=== PATIENT | female | born 1970 | race Caucasian/White ===

== ENCOUNTER 2023-06-26 16:17 | Emergency (ER) | payer MEDICAID ==
[2023-06-26 18:24] LABS: BASE EXCESS VENOUS 3.1 mm/L; BICARBONATE,VENOUS 27.4 mmol/L; CARBOXYHEMOGLOBIN 7.3 % (0.0-1.6); O2 SATURATION VENOUS 76.4; OXYHEMOGLOBIN 70.1 %; PCO2 VENOUS 42.3 mm/Hg; PH,VENOUS 7.427 (7.350-7.450); PO2 VENOUS 39.9 mm/Hg; TOTAL HEMOGLOBIN 16.2 g/dL (12.0-16.0)
[2023-06-26 18:27] LABS: BASOPHILS PERCENT AUTO 0.2 % (0.1-1.3); HEMATOCRIT 44.7 % (34.3-46.0); HEMOGLOBIN 15.5 g/dL (11.2-15.5); IMMATURE GRAN ABSOLUTE AUTO 0.04 K/uL (0.00-0.23); IMMATURE GRAN PERCENT AUTO 0.4 % (0.0-0.7); LYMPHOCYTES ABSOLUTE AUTO 0.87 K/uL (0.8-3.3); LYMPHOCYTES PERCENT AUTO 8.9 % (11.4-47.7); MEAN CORPUSCULAR HEMOGLOBIN 31.5 pg (31.6-35.5); MEAN CORPUSCULAR HGB CONC 34.7 g/dL (31.6-35.5); MEAN CORPUSCULAR VOLUME 90.9 fL (81.4-99.0); MONOCYTES ABSOLUTE AUTO 0.48 K/uL (0.20-0.90); MONOCYTES PERCENT AUTO 4.9 % (3.3-12.6); NEUTROPHILS PERCENT AUTO 85.6 % (40.0-78.1); PLATELET COUNT,PLT 235 K/uL (130-375); RED BLOOD CELL COUNT 4.92 M/uL (3.77-5.24); WHITE BLOOD CELL COUNT,WBC 9.8 K/uL (3.2-11.0)
[2023-06-26 18:28] LABS: BASOPHILS ABSOLUTE AUTO 0.02 K/uL (0.00-0.10)
[2023-06-26 18:54] LABS: A/G RATIO 1.2 (1.2-2.2); ALANINE AMINOTRANSFERASE,ALT 24 U/L (12-78); ALBUMIN 3.9 g/dL (3.4-5.0); ALKALINE PHOSPHATASE 156 U/L (46-116); ANION GAP 14.6 mmol/L (5.0-14.0); ASPARTATE AMNIOTRANSFERASE,AST 7 U/L (15-37); BILIRUBIN TOTAL 0.3 mg/dL (0.2-1.0); BLOOD UREA NITROGEN,BUN 17 mg/dL (7-18); CARBON DIOXIDE,CO2 28 mmol/L (21-32); CHLORIDE,CL 96 mmol/L (100-108); CREATININE 1.1 mg/dL (0.6-1.0); EST CRCL DRUG DOSING (CG) 54.45 mL/min; ESTIMATED GFR 61 mL/min (>60); POTASSIUM,K 4.6 mmol/L (3.6-5.2); PROTEIN TOTAL,TP 7.2 g/dL (6.4-8.2); SODIUM,NA 134 mmol/L (140-148)
[2023-06-26 18:55] LABS: C-REACTIVE PROTEIN < 0.50 mg/dL (<0.50); GLUCOSE RANDOM 477 mg/dL (74-106)
== END 2023-06-26 19:14 | disposition home or self-care (01) ==
LOC: JP.ED 16:17
DX: E11.65 Type 2 diabetes mellitus with hyperglycemia (principal); J44.9 Chronic obstructive pulmonary disease, unspecified; F17.210 Nicotine dependence, cigarettes, uncomplicated; Z79.84 Long term (current) use of oral hypoglycemic drugs; Z79.899 Other long term (current) drug therapy; Z88.0 Allergy status to penicillin; Z79.82 Long term (current) use of aspirin
CPT/HCPCS: 36415; 80053; 82009; 82803; 85025; 86140; 99283

== ENCOUNTER 2024-08-01 08:54 | Emergency (ER) | payer MEDICAID ==
[2024-08-01 12:57] LABS: BASOPHILS ABSOLUTE AUTO 0.03 K/uL (0.00-0.10); BASOPHILS PERCENT AUTO 0.6 % (0.1-1.3); EOSINOPHILS ABSOLUTE AUTO 0.12 K/uL (0.00-0.40); EOSINOPHILS PERCENT AUTO 2.3 % (0.0-5.4); HEMATOCRIT 43.4 % (34.3-46.0); HEMOGLOBIN 15.3 g/dL (11.2-15.5); IMMATURE GRAN PERCENT AUTO 0.4 % (0.0-0.7); LYMPHOCYTES ABSOLUTE AUTO 1.78 K/uL (0.8-3.3); LYMPHOCYTES PERCENT AUTO 33.6 % (11.4-47.7); MEAN CORPUSCULAR HEMOGLOBIN 31.9 pg (31.6-35.5); MEAN CORPUSCULAR HGB CONC 35.3 g/dL (31.6-35.5); MEAN CORPUSCULAR VOLUME 90.6 fL (81.4-99.0); MONOCYTES ABSOLUTE AUTO 0.43 K/uL (0.20-0.90); MONOCYTES PERCENT AUTO 8.1 % (3.3-12.6); NEUTROPHILS ABSOLUTE AUTO 2.91 K/uL (1.0-7.6); PLATELET COUNT,PLT 192 K/uL (130-375); RED BLOOD CELL COUNT 4.79 M/uL (3.77-5.24); WHITE BLOOD CELL COUNT,WBC 5.3 K/uL (3.2-11.0)
[2024-08-01 12:58] LABS: IMMATURE GRAN ABSOLUTE AUTO 0.02 K/uL (0.00-0.23)
[2024-08-01 13:14] LABS: BLOOD UREA NITROGEN,BUN 7 mg/dL (7-18); CALCIUM 9.2 mg/dL (8.5-10.1); CARBON DIOXIDE,CO2 30 mmol/L (21-32); CHLORIDE,CL 98 mmol/L (100-108); CREATININE 0.8 mg/dL (0.6-1.0); EST CRCL DRUG DOSING (CG) 74.02 mL/min; ESTIMATED GFR 89 mL/min (>60); GLUCOSE RANDOM 149 mg/dL (74-106); POTASSIUM,K 4.3 mmol/L (3.6-5.2); SODIUM,NA 137 mmol/L (140-148)
[2024-08-01 13:17] LABS: ANION GAP 13.3 mmol/L (5.0-14.0); C-REACTIVE PROTEIN < 0.50 mg/dL (<0.50)
== END 2024-08-01 13:49 | disposition home or self-care (01) ==
LOC: JP.ED 08:54
DX: J06.9 Acute upper respiratory infection, unspecified (principal); B97.89 Other viral agents as the cause of diseases classified elsewhere; E78.00 Pure hypercholesterolemia, unspecified; E11.9 Type 2 diabetes mellitus without complications; F17.210 Nicotine dependence, cigarettes, uncomplicated; Z79.899 Other long term (current) drug therapy; Z79.4 Long term (current) use of insulin; Z79.82 Long term (current) use of aspirin; Z88.0 Allergy status to penicillin
CPT/HCPCS: 36415; 71045; 71045-26; 80048; 85025; 86140; 99284

== ENCOUNTER 2025-02-23 21:52 | Emergency (ER) | payer MEDICAID ==
[2025-02-23 23:48] LABS: BASOPHILS ABSOLUTE AUTO 0.06 K/uL (0.00-0.10); BASOPHILS PERCENT AUTO 0.8 % (0.1-1.3); EOSINOPHILS ABSOLUTE AUTO 0.50 K/uL (0.00-0.40); EOSINOPHILS PERCENT AUTO 6.7 % (0.0-5.4); IMMATURE GRAN PERCENT AUTO 0.3 % (0.0-0.7); LYMPHOCYTES ABSOLUTE AUTO 2.58 K/uL (0.8-3.3); LYMPHOCYTES PERCENT AUTO 34.4 % (11.4-47.7); MONOCYTES ABSOLUTE AUTO 0.53 K/uL (0.20-0.90); MONOCYTES PERCENT AUTO 7.1 % (3.3-12.6); NEUTROPHILS ABSOLUTE AUTO 3.82 K/uL (1.0-7.6); NEUTROPHILS PERCENT AUTO 50.7 % (40.0-78.1); PLATELET COUNT,PLT 246 K/uL (130-375); RED BLOOD CELL COUNT 4.86 M/uL (3.77-5.24); WHITE BLOOD CELL COUNT,WBC 7.5 K/uL (3.2-11.0)
[2025-02-23 23:54] LABS: IMMATURE GRAN ABSOLUTE AUTO 0.02 K/uL (0.00-0.23)
[2025-02-24 00:08] LABS: A/G RATIO 1.0 (1.2-2.2); ALANINE AMINOTRANSFERASE,ALT 25 U/L (12-78); ASPARTATE AMNIOTRANSFERASE,AST 9 U/L (15-37); BILIRUBIN TOTAL 0.3 mg/dL (0.2-1.0); BLOOD UREA NITROGEN,BUN 10 mg/dL (7-18); CARBON DIOXIDE,CO2 30 mmol/L (21-32); CHLORIDE,CL 97 mmol/L (100-108); CREATININE 0.8 mg/dL (0.6-1.0); EST CRCL DRUG DOSING (CG) 74.02 mL/min; ESTIMATED GFR 89 mL/min (>60); GLUCOSE RANDOM 340 mg/dL (74-106); POTASSIUM,K 4.1 mmol/L (3.6-5.2); PROTEIN TOTAL,TP 7.6 g/dL (6.4-8.2); SODIUM,NA 134 mmol/L (140-148)
== END 2025-02-24 00:26 | disposition home or self-care (01) ==
LOC: JP.ED 21:52
DX: E11.65 Type 2 diabetes mellitus with hyperglycemia (principal); E78.00 Pure hypercholesterolemia, unspecified; J44.9 Chronic obstructive pulmonary disease, unspecified; F17.210 Nicotine dependence, cigarettes, uncomplicated; Z91.030 Bee allergy status; Z88.0 Allergy status to penicillin; Z79.51 Long term (current) use of inhaled steroids; Z79.899 Other long term (current) drug therapy; Z79.4 Long term (current) use of insulin; Z79.84 Long term (current) use of oral hypoglycemic drugs
CPT/HCPCS: 36415; 80053; 82009; 85025; 99284